=== PATIENT | male | born 1980 | race Caucasian/White ===

== ENCOUNTER 2016-09-29 13:18 | Emergency (ER) | payer OTHER ==
[2016-09-29 13:28] VITALS: BP 135/102
--- NOTE | 2016-09-29 14:11 | EDM.PDOC ---
ED HPI GENERAL MEDICAL PROBLEM - General Chief Complaint: General Stated Complaint: TOOTH PAIN Time Seen by Provider: 09/29/16 13:41 Source of Information: Reports: Patient History Limitations: Reports: No Limitations - History of Present Illness INITIAL COMMENTS - FREE TEXT/NARRATIVE: patient is a 36-year-old male who presents ED complaining of pain to the #32 tooth.patient states while brushing his teeth this morning part of the tooth fell off exposing the nerve causing increasing pain. He has tried Orajel with no relief. He contacted dentists here locally with instructions to follow-up in the ED for pain relief. Patient does have a history of poor dentition. Patient notes no pain prior to affected tooth. 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: NSAIDS Tooth/Teeth Pain Score (Numeric/FACES): 8 - Related Data Allergies Allergy/AdvReac Type Severity Reaction Status Date / Time milk Allergy Indigestion Verified 09/29/16 13:25 Home Meds: Home Meds traMADol [Ultram] 50 mg PO Q6H PRN #10 tablet 09/29/16 [Rx] Past Medical History - Past Health History Medical/Surgical History: Denies Medical/Surgical History Social & Family History - Tobacco Use Smoking Status *Q: Current Every Day Smoker Years of Tobacco use: 15 Packs/Tins Daily: 1 - Recreational Drug Use Recreational Drug Use: No ED ROS GENERAL - Review of Systems Review Of Systems: See Below HEENT: Reports: Dental Pain ED EXAM, GENERAL - Physical Exam Exam: See Below Exam Limited By: No Limitations General Appearance: Alert, WD/WN, No Apparent Distress Ears: Hearing Grossly Normal Nose: Normal Inspection Throat/Mouth: Normal Inspection, Normal Oropharynx, Normal Voice, No Airway Compromise, Other (#32 tooth: Part of the tooth is missing on the lateral aspect of the tooth. No gumline swelling. ) Head: Atraumatic, Normocephalic Neck: Normal Inspection, Supple. No: Lymphadenopathy (L), Lymphadenopathy (R) Respiratory/Chest: No Respiratory Distress, Lungs Clear, Normal Breath Sounds, No Accessory Muscle Use, Chest Non-Tender Cardiovascular: Normal Peripheral Pulses, Regular Rate, Rhythm, No Murmur Peripheral Pulses: 2+: Radial (L) Extremities: Normal Inspection Neurological: Alert, Oriented, CN II-XII Intact Psychiatric: Normal Affect, Normal Mood Skin Exam: Warm, Dry, Intact, Normal Color Course - Vital Signs Last Recorded V/S: Last Vital Signs Temp 98.2 F 09/29/16 13:25 Pulse 82 09/29/16 13:25 Resp BP 135/102 H 09/29/16 13:25 Pulse Ox 99 09/29/16 13:25 - Re-Assessments/Exams Free Text/Narrative Re-Assessment/Exam: Pain is isolated to the #32 tooth. Part of the tooth fallen off of the tooth exposing the nerve root. No swelling along the gumline. No purulent drainage present. wisdom teeth are present. Inferior alveolar nerve block performed with bupuvacaine. patient had immediate pain relief. We'll discharge patient home with instructions as documented. Departure - Departure Time of Disposition: 14:11 Disposition: Home, Self-Care 01 Condition: Good Clinical Impression: Pain due to dental caries Fractured tooth Qualifiers: Encounter type: initial encounter Fracture type: closed Qualified Code(s): S02.5XXA - Fracture of tooth (traumatic), initial encounter for closed fracture - Discharge Information Prescriptions: traMADol [Ultram] 50 mg PO Q6H PRN #10 tablet PRN Reason: Pain Referrals: PCP,None [Primary Care Provider] - Forms: ED Department Discharge Additional Instructions: Take Tylenol and ibuprofen in alternating fashion for pain. Take tramadol as needed for severe pain. Refrain from chewing food on the affected side. Call and make an appointment to be seen by a dentist for definitive treatment. Return to the ED for any new or worsening symptoms. No abscess present no antibiotics provided upon discharge.
== END 2016-09-29 14:22 | disposition home or self-care (01) ==
LOC: JD.ED 13:18
DX: K02.9 Dental caries, unspecified (principal); K03.81 Cracked tooth; F17.210 Nicotine dependence, cigarettes, uncomplicated
CPT/HCPCS: 64400; 99283